=== PATIENT | female | born 1960 | race Caucasian/White ===

== ENCOUNTER 2017-05-01 12:18 | Emergency (ER) | payer MEDICARE, OTHER ==
[2017-05-01 13:11] VITALS: BP 135/87
--- NOTE | 2017-05-01 14:07 | UC ---
Complaint Female HPI - HPI Summary HPI Summary: HISTORY OF INTERSTITIAL CYSTITIS. HAS BEEN SELF-CATHING. THIS WEEKEND BEGAN DEVELOPING WORSENING BLADDER PRESSURE AND DISCOMFORT. - History Of Current Complaint Chief Complaint: UCAbdominalPain Stated Complaint: UTI Time Seen by Provider: 05/01/17 13:12 Hx Obtained From: Patient Onset/Duration: Gradual Onset, Lasting Days, Still Present Timing: Lasting Days Severity Initially: Mild Severity Currently: Moderate Pain Intensity: 0 Pain Scale Used: Adult Non Verbal Aggravating Factor(s): Urination Alleviating Factor(s): Position - Risk Factors Ectopic Risk Factor: Negative Ovarian Torsion Risk Factor: Negative - Allergies/Home Medications Allergies/Adverse Reactions: Allergies Allergy/AdvReac Type Severity Reaction Status Date / Time Omeprazole Allergy Rash Verified 05/01/17 13:11 Penicillins Allergy HAPPENED Verified 05/01/17 13:11 A CHILD -UNSURE OF RXN Home Medications: Home Medications Cimetidine [Cimetidine] 1 tab PO TID 05/01/17 [History Confirmed 05/01/17] Cystex 1 tab PO BID 05/01/17 [History Confirmed 05/01/17] Tizanidine HCl [Tizanidine HCl] 1 tab PO DAILY 05/01/17 [History Confirmed 05/01] hydrOXYzine HCL TAB* [Atarax 10 MG TAB*] 3 tab PO DAILY 05/01/17 [History Confirmed 05/01/17] PMH/Surg Hx/FS Hx/Imm Hx Previously Healthy: Yes - Surgical History Surgical History: Yes Surgery Procedure, Year, and Place: 1985 & 1986,HYSTERECTOMY 1990, HERNIA REPAIR LATE ,LAPROSCOPIC SURGERY TO REMOVE ABDOMINAL LESIONS 2011. LASIK EYE SURGERY CORRECTIVE VISION 2005 - Family History Known Family History: Positive: Cardiac Disease - father, Hypertension - mother and father, Other - Cervical CA (mother), HLD - Social History Occupation: Employed Full-time Lives: With Family Alcohol Use: None Substance Use Type: None Smoking Status (MU): Former Smoker Review of Systems Constitutional: Negative Skin: Negative Eyes: Negative ENT: Negative Respiratory: Negative Cardiovascular: Negative Gastrointestinal: Negative Genitourinary: Dysuria, Frequency, Urgency Motor: Negative Neurovascular: Negative Musculoskeletal: Negative Neurological: Negative Psychological: Negative All Other Systems Reviewed And Are Negative: Yes Physical Exam Triage Information Reviewed: Yes Appearance: Well-Appearing, No Pain Distress, Well-Nourished Vital Signs: Initial Vital Signs Temp 97.6 F 05/01/17 13:05 Pulse 76 05/01/17 13:05 Resp 18 05/01/17 13:05 BP 135/87 05/01/17 13:05 Pulse Ox 100 05/01/17 13:05 Vital Signs Reviewed: Yes Eye Exam: Normal ENT Exam: Normal Dental Exam: Normal Neck exam: Normal Neck: Positive: Supple, Nontender Respiratory Exam: Normal Respiratory: Positive: Chest non-tender, Lungs clear, Normal breath sounds Cardiovascular Exam: Normal Cardiovascular: Positive: RRR, No Murmur, Pulses Normal Abdominal Exam: Normal Abdomen Description: Positive: Nontender, No Organomegaly. Negative: CVA Tenderness (R), CVA Tenderness (L) Musculoskeletal Exam: Normal Neurological Exam: Normal Psychological Exam: Normal Skin Exam: Normal Complaint Female Dx - Differential Dx/Diagnosis Differential Diagnosis/HQI/PQRI: Cervicitis, Urinary Tract Infection, Other - IC Provider Diagnoses: URINARY TRACT INFECTION Discharge - Discharge Plan Condition: Stable Disposition: HOME Prescriptions: Sulfamethox/Trimethoprim DS* [Bactrim DS 800/160 TAB*] 1 tab PO BID #10 tab Patient Education Materials: Urinary Tract Infection in Women (ED) Referrals: Alicia Child MD [Primary Care Provider] -
== END 2017-05-01 13:45 | disposition home or self-care (01) ==
LOC: UCEAST 12:18
DX: N39.0 Urinary tract infection, site not specified (principal); Z88.0 Allergy status to penicillin; Z87.891 Personal history of nicotine dependence
CPT/HCPCS: 81003; 87077; 87086; 87186; 99212; G0463

== ENCOUNTER 2017-07-15 13:00 | Emergency (ER) | payer MEDICARE, OTHER ==
[2017-07-15] MEDS ORDERED: Albuterol/Ipratropium NEB.SOL* Albuterol 2.5 MG/Ipratropium 0.5 MG 3 ML INH ONE (14:23)
--- NOTE | 2017-07-15 14:25 | UC ---
Respiratory Complaint HPI - HPI Summary HPI Summary: Harsh cough for 2 days slight relief with neb (but the med was old) - History of Current Complaint Chief Complaint: UCRespiratory Stated Complaint: COUGH SOB ASTHMA Time Seen by Provider: 07/15/17 14:22 Hx Obtained From: Patient ?: No Onset/Duration: Sudden Onset, Lasting Days - 2 Timing: Constant Severity Initially: Moderate Severity Currently: Moderate Pain Intensity: 5 Pain Scale Used: 0-10 Numeric Character: Cough: Nonproductive Aggravating Factors: Allergens Alleviating Factors: Nothing Associated Signs And Symptoms: Positive: URI, Nasal Congestion - Allergies/Home Medications Allergies/Adverse Reactions: Allergies Allergy/AdvReac Type Severity Reaction Status Date / Time Omeprazole Allergy Rash Verified 07/15/17 13:08 Penicillins Allergy HAPPENED Verified 07/15/17 13:08 A CHILD -UNSURE OF RXN PMH/Surg Hx/FS Hx/Imm Hx Previously Healthy: No Endocrine History: Dyslipidemia Psychological History: Bipolar Disorder - Surgical History Surgical History: Yes Surgery Procedure, Year, and Place: 1985 & 1986,HYSTERECTOMY 1990, HERNIA REPAIR LATE ,LAPROSCOPIC SURGERY TO REMOVE ABDOMINAL LESIONS 2011. LASIK EYE SURGERY CORRECTIVE VISION 2005 - Family History Known Family History: Positive: Cardiac Disease - father, Hypertension - mother and father, Other - Cervical CA (mother), HLD - Social History Occupation: Retired Lives: With Family Alcohol Use: None Substance Use Type: None Smoking Status (MU): Former Smoker Review of Systems Constitutional: Negative Skin: Negative Eyes: Negative ENT: Nasal Discharge Respiratory: Cough Cardiovascular: Negative Gastrointestinal: Negative Genitourinary: Negative Motor: Negative Neurovascular: Negative Musculoskeletal: Negative Neurological: Negative Psychological: Negative Is Patient Immunocompromised?: No All Other Systems Reviewed And Are Negative: Yes Physical Exam Triage Information Reviewed: Yes Appearance: Well-Appearing, No Pain Distress, Well-Nourished Vital Signs: Initial Vital Signs Temp 98.2 F 07/15/17 13:03 Pulse 80 07/15/17 13:03 Resp 24 07/15/17 13:03 BP 120/65 07/15/17 13:03 Pulse Ox 99 07/15/17 13:03 Vital Signs Reviewed: Yes Eye Exam: Normal Eyes: Positive: Conjunctiva Clear ENT Exam: Normal ENT: Positive: Normal ENT inspection, Hearing grossly normal, Nasal congestion. Negative: Trismus, Muffled voice, Hoarse voice Dental Exam: Normal Neck exam: Normal Neck: Positive: Supple, Nontender, No Lymphadenopathy Respiratory Exam: Normal Respiratory: Positive: Chest non-tender, Lungs clear, No respiratory distress, Decreased breath sounds, Other: - Bronchospastic cough Cardiovascular Exam: Normal Cardiovascular: Positive: RRR, No Murmur, Pulses Normal, Brisk Capillary Refill Musculoskeletal Exam: Normal Musculoskeletal: Positive: Strength Intact, ROM Intact, No Edema Neurological Exam: Normal Neurological: Positive: Alert, Muscle Tone Normal Psychological Exam: Normal Skin Exam: Normal UC Diagnostic Evaluation - Laboratory O2 Sat by Pulse Oximetry: 99 - EKG Cardiac Rate: NL Cardiac Rhythm: Sinus: Normal Ectopy: None ST Segment: Normal Re-Evaluation - Re-Evaluation First Eval Change: Improved - after neb Respiratory Course/Dx - Course Course Of Treatment: Robitussin and Codiene, albuterol, increase cough follow with pcp - Differential Dx/Diagnosis Provider Diagnoses: Bronchospasm Discharge - Discharge Plan Condition: Stable Disposition: HOME Prescriptions: Albuterol 2.5MG/3ML (0.083%)* [Ventolin 2.5 MG/3 ML NEB.PRIYANK*] 2.5 mg INH Q6H PRN #1 box PRN Reason: Cough guaiFENesin/CODIEN 100MG-10MG* [Robitussin AC 100Mg-10Mg*] 10 ml PO Q4H PRN # 120 ml MDD 40 PRN Reason: cough Patient Education Materials: Bronchospasm (ED) Referrals: Chioma Lo MD [Primary Care Provider] - 3 Days
[2017-07-15 15:20] VITALS: BP 132/72
== END 2017-07-15 15:08 | disposition home or self-care (01) ==
LOC: UCEAST 13:00
DX: J98.01 Acute bronchospasm (principal); Z88.8 Allergy status to other drugs, medicaments and biological substances; Z88.0 Allergy status to penicillin; Z87.891 Personal history of nicotine dependence; R06.02 Shortness of breath; E78.5 Hyperlipidemia, unspecified
CPT/HCPCS: 93005; 99212; A9270-GY; G0463

== ENCOUNTER 2017-07-29 12:21 | Emergency (ER) | payer MEDICARE, OTHER ==
[2017-07-29 12:53] VITALS: BP 107/67
--- NOTE | 2017-07-29 12:57 | UC ---
Complaint Female HPI - HPI Summary HPI Summary: Pt presents with burning with urination. She tells me that she has an extensive history of interstitial cystitis and catheterizes herself often. 3 days ago she noticed some tingling around her urethra when she was urinating, which has been intermittent since. She denies fever, chills, abdominal pain, N/V/D/C, hematuria , vaginal discharge, odor, or flank pain. - History Of Current Complaint Hx Obtained From: Patient ?: No Onset/Duration: Sudden Onset Timing: Intermittent Severity Initially: Mild Severity Currently: Mild Character: Burning <Juancho Fulton - Last Filed: 07/29/17 13:46> <Cristiane Schmitz - Last Filed: 07/29/17 14:16> - History Of Current Complaint Chief Complaint: UCGU Stated Complaint: URINARY ISSUE Time Seen by Provider: 07/29/17 12:43 - Allergies/Home Medications Allergies/Adverse Reactions: Allergies Allergy/AdvReac Type Severity Reaction Status Date / Time Omeprazole Allergy Rash Verified 07/29/17 12:49 Penicillins Allergy HAPPENED Verified 07/29/17 12:49 A CHILD -UNSURE OF RXN PMH/Surg Hx/FS Hx/Imm Hx Previously Healthy: Yes Endocrine History: Dyslipidemia Cardiovascular History: Cardiac Disease Psychological History: Bipolar Disorder - Surgical History Surgical History: Yes Surgery Procedure, Year, and Place: 1985 & 1986,HYSTERECTOMY 1990, HERNIA REPAIR LATE ,LAPROSCOPIC SURGERY TO REMOVE ABDOMINAL LESIONS 2011. LASIK EYE SURGERY CORRECTIVE VISION 2005 - Family History Known Family History: Positive: Cardiac Disease - father, Hypertension - mother and father, Other - Cervical CA (mother), HLD - Social History Alcohol Use: None Substance Use Type: None Smoking Status (MU): Former Smoker <Juancho Fulton - Last Filed: 07/29/17 13:46> Review of Systems Constitutional: Negative Skin: Negative Respiratory: Negative Cardiovascular: Negative Gastrointestinal: Negative Genitourinary: Dysuria Neurological: Negative Psychological: Negative All Other Systems Reviewed And Are Negative: Yes <Juancho Fulton - Last Filed: 07/29/17 13:46> Physical Exam Triage Information Reviewed: Yes Appearance: Well-Appearing, Well-Nourished Vital Signs: Initial Vital Signs Temp 98.2 F 07/29/17 12:49 Pulse 74 07/29/17 12:49 Resp 15 07/29/17 12:49 BP 107/67 07/29/17 12:49 Pulse Ox 100 07/29/17 12:49 Vital Signs Reviewed: Yes Neck: Positive: Supple, Nontender, No Lymphadenopathy Respiratory: Positive: Chest non-tender, Lungs clear, Normal breath sounds, No respiratory distress, No accessory muscle use Cardiovascular: Positive: RRR, No Murmur, Pulses Normal Abdomen Description: Positive: Nontender, No Organomegaly, Soft. Negative: CVA Tenderness (R), CVA Tenderness (L), Distended, Guarding Bowel Sounds: Positive: Present Neurological: Positive: Alert Psychological: Positive: Age Appropriate Behavior Skin: Negative: rashes <Juancho Fulton - Last Filed: 07/29/17 13:46> Vital Signs: Initial Vital Signs Temp 98.2 F 07/29/17 12:49 Pulse 74 07/29/17 12:49 Resp 15 07/29/17 12:49 BP 107/67 07/29/17 12:49 Pulse Ox 100 07/29/17 12:49 <Cristiane Schmitz - Last Filed: 07/29/17 14:16> Complaint Female Dx - Course Course Of Treatment: UA was WNL today. Likely her interstitial cystitis. Advised to try her at home remedies and f/u with her urologist. - Differential Dx/Diagnosis Differential Diagnosis/HQI/PQRI: Cervicitis, Renal Colic, Sexually Transmitted Disease, Urinary Tract Infection, Other - IC Provider Diagnoses: interstitial cystitis <Juancho Fulton - Last Filed: 07/29/17 13:46> Discharge <Juancho Fulton - Last Filed: 07/29/17 13:46> <Cristiane Schmitz - Last Filed: 07/29/17 14:16> - Discharge Plan Condition: Stable Disposition: HOME Patient Education Materials: Interstitial Cystitis (ED) Referrals: Chioma Lo MD [Primary Care Provider] - Additional Instructions: No sign of urinary infection today. Try your at home remedies for interstitial cystitis. If you develop a fever, SOB, chest pain, new or worsening symptoms - please call your PCP or go to the ED. Attestation Statement User Type: Provider - I was available for consult. This patient was seen by the DAR[facility]. The patient was not presented to, seen by, or examined by me. -Simone <Cristiane Schmitz - Last Filed: 07/29/17 14:16>
== END 2017-07-29 13:47 | disposition home or self-care (01) ==
LOC: UCEAST 12:21
DX: N30.10 Interstitial cystitis (chronic) without hematuria (principal)
CPT/HCPCS: 81003; 99211; G0463

== ENCOUNTER 2017-08-04 13:48 | Emergency (ER) | payer MEDICARE, OTHER ==
[2017-08-04 15:12] VITALS: BP 107/69
--- NOTE | 2017-08-04 15:56 | UC ---
Complaint Female HPI - HPI Summary HPI Summary: 56 y/o female presents to the urgent care c/o frequency, urgency and burning on urination about 1 week ago. She was here at the clinic last week and her UA was negative, She has Hx of interstitial cystitis. She took Azo about 2 days ago and symptoms improved. She wants to make sure she doesn't have a UTI. Pt denies lower back pain, flank pain, abdominal pain, N/V/D, fever. - History Of Current Complaint Chief Complaint: UCAbdominalPain Stated Complaint: UNRINATION PROBLEM Time Seen by Provider: 08/04/17 15:22 Hx Obtained From: Patient Hx Last Menstrual Period: menopausal ?: No Onset/Duration: Gradual Onset, Lasting Weeks - 1 week, Still Present Timing: Intermittent, Lasting Seconds Severity Initially: Mild Severity Currently: Moderate Pain Intensity: 2 Pain Scale Used: 0-10 Numeric Character: Burning Aggravating Factor(s): Urination Alleviating Factor(s): Meds Associated Signs And Symptoms: Positive: Negative. Negative: Fever, Back Pain, Vaginal Bleeding/Discharge - Risk Factors Ectopic Risk Factor: Negative - Allergies/Home Medications Allergies/Adverse Reactions: Allergies Allergy/AdvReac Type Severity Reaction Status Date / Time Omeprazole Allergy Rash Verified 08/04/17 15:12 Penicillins Allergy HAPPENED Verified 08/04/17 15:12 A CHILD -UNSURE OF RXN PMH/Surg Hx/FS Hx/Imm Hx Previously Healthy: Yes Endocrine History: Dyslipidemia Other GI/ History: Interstitial cystitis - Surgical History Surgical History: Yes Surgery Procedure, Year, and Place: 1985 & 1986,HYSTERECTOMY 1990, HERNIA REPAIR LATE ,LAPROSCOPIC SURGERY TO REMOVE ABDOMINAL LESIONS 2011. LASIK EYE SURGERY CORRECTIVE VISION 2005 - Family History Known Family History: Positive: Cardiac Disease - father, Hypertension - mother and father Family History: Cervical CA (mother), HLD - Social History Occupation: Employed Full-time Lives: With Family Alcohol Use: None Substance Use Type: None Smoking Status (MU): Former Smoker - Immunization History Most Recent Influenza Vaccination: 05/2017 Review of Systems Constitutional: Negative Skin: Negative Eyes: Negative ENT: Negative Respiratory: Negative Cardiovascular: Negative Gastrointestinal: Negative Genitourinary: Dysuria, Frequency, Urgency Motor: Negative Neurovascular: Negative Musculoskeletal: Negative Neurological: Negative Psychological: Negative Is Patient Immunocompromised?: No All Other Systems Reviewed And Are Negative: Yes Physical Exam Triage Information Reviewed: Yes Vital Signs: Initial Vital Signs Temp 98.7 F 08/04/17 15:07 Pulse 87 08/04/17 15:07 Resp 16 08/04/17 15:07 BP 107/69 08/04/17 15:07 Pulse Ox 100 08/04/17 15:07 - Additional Comments VITAL SIGNS: Reviewed. GENERAL: Patient is a well developed and nourished female who is sitting comfortable in the examining table. Patient is not in any acute respiratory distress. HEAD AND FACE: No signs of trauma. No ecchymosis, hematomas or skull depressions. No sinus tenderness. EYES: PERRLA, EOMI x 2, No injected conjunctiva, clear watery eyes, no nystagmus. No photophobia. EARS: Hearing grossly intact. Ear canals and tympanic membranes are within normal limits. MOUTH: pharynx with no erythema, no exudates,no palatal petechiae. no B/L tonsillar enlargement Uvula in midline. NECK: Supple, trachea is midline, no lymphadenopathy, no JVD, no carotid bruit, no c-spine tenderness, neck with full ROM. CHEST: Symmetric, no tenderness at palpation LUNGS: Clear to auscultation bilaterally. No wheezing or crackles. CVS: Regular rate and rhythm, S1 and S2 present, no murmurs or gallops appreciated. ABDOMEN: Soft, non-tender. No signs of distention. No rebound no guarding, and no masses palpated. Bowel sounds are normal. BACK:no scoliosis or lesions, non tender to palaption, No B/L CVA tenderness EXTREMITIES: FROM in all major joints, no edema, no cyanosis or clubbing. NEURO: Alert and oriented x 3. No acute neurological deficits. Speech is normal and follows commands. Complaint Female Dx - Course Course Of Treatment: 56 y/o female presents to the urgent care c/o frequency, urgency and burning on urination about 1 week ago. She was here at the clinic last week and her UA was negative, She has Hx of interstitial cystitis. She took Azo about 2 days ago and symptoms improved. She wants to make sure she doesn't have a UTI. Pt denies lower back pain, flank pain, abdominal pain, N/V/D , fever. Hx obtained. PE: WNL. UA and test ordered. UA results: Nitrates + and Blood trace. Pt Rx Macrobid 100mg PO x 5 days. Pyridium 100mg PO TID x 2 days to Tx as UTI. Advised to increase fluid intake. Urine sent for culture to r/o UTI, if any abnormality Pt will be notified for further treatment. Pt advised If symptoms do not improve to return to the urgent care or f/u with PCP. Pt understood and agreed. Left the clinic ambulating. - Differential Dx/Diagnosis Differential Diagnosis/HQI/PQRI: Cervicitis, Pelvic Inflammatory Disease, Renal Colic, Sexually Transmitted Disease, Ureteral Stone, Urinary Tract Infection Provider Diagnoses: 1- UTI. 2-Dysuria Discharge - Discharge Plan Condition: Stable Disposition: HOME Prescriptions: Nitrofurantoin Monohyd Macro [Macrobid] 100 mg PO BID #10 cap Phenazopyridine TAB* [Pyridium 100 mg TAB*] 100 mg PO TID #6 tab Patient Education Materials: Urinary Tract Infection in Women (ED) Referrals: Chioma Lo MD [Primary Care Provider] - 3 Days Additional Instructions: 1- Please take Macrobid 100mg PO x 5 days. Pyridium 100 mg PO TID x 2 days to alleviate urinary symptoms. Increase increase fluid intake. drink cranberry juice. 2-Urine sent for culture to r/o UTI , you will be notified for further treatment. 3-If symptoms do not improve please return to the urgent care or f/u with her PCP.
--- NOTE | 2017-08-07 15:01 | UC ---
Progress - Progress Note Progress Note: + E coli pt on bactrim await sensitivity no change Simone 08/07/2017
== END 2017-08-04 15:50 | disposition home or self-care (01) ==
LOC: UCEAST 13:48
DX: N39.0 Urinary tract infection, site not specified (principal); R30.0 Dysuria; B96.20 Unspecified Escherichia coli [E. coli] as the cause of diseases classified elsewhere; Z87.891 Personal history of nicotine dependence
CPT/HCPCS: 81003; 87077; 87086; 87186; 99212; G0463

== ENCOUNTER 2017-08-14 07:36 | Emergency (ER) | payer MEDICARE, OTHER ==
[2017-08-14 07:51] VITALS: BP 105/60
--- NOTE | 2017-08-14 08:05 | UC ---
Complaint Female HPI - HPI Summary HPI Summary: PT WITH H/O INTERSTITIAL CYSTITIS AND URINARY RETENTION PRESENTS WITH 2-3 DAYS OF DYSURIA, FREQUENCY AND URGENCY. PT HAS BEEN SELF CATHING FOR A FEW MONTHS DUE TO URINARY RETENTION. SEES A UROGYNECOLOGIST IN [place] AND IS SCHEDULED FOR CYSTOSCOPY IN SEVERAL WEEKS. WAS ON MACROBID FOR E.COLI UTI 10 DAYS AGO. NO FEVER. - History Of Current Complaint Chief Complaint: UCGU Stated Complaint: URINARY ISSUE Time Seen by Provider: 08/14/17 07:58 Hx Obtained From: Patient Hx Last Menstrual Period: menopausal Onset/Duration: Sudden Onset, Lasting Days, Still Present Timing: Constant Severity Initially: Moderate Severity Currently: Moderate Pain Intensity: 4 Pain Scale Used: 0-10 Numeric Character: Sharp, Burning Aggravating Factor(s): Urination Alleviating Factor(s): Nothing Associated Signs And Symptoms: Negative: Fever, Back Pain, Vaginal Bleeding/ Discharge, Vaginal Discharge, Nausea, Vomiting(# Of Episodes =) - Allergies/Home Medications Allergies/Adverse Reactions: Allergies Allergy/AdvReac Type Severity Reaction Status Date / Time Omeprazole Allergy Rash Verified 08/14/17 07:51 Penicillins Allergy HAPPENED Verified 08/14/17 07:51 A CHILD -UNSURE OF RXN Home Medications: Home Medications Cystex 1 tab PO TID 08/14/17 [History Confirmed 08/14/17] Lamotrigine [Lamictal] 100 mg PO BEDTIME 08/14/17 [History Confirmed 08/14/17] PMH/Surg Hx/FS Hx/Imm Hx Endocrine History: Dyslipidemia GI/ History: Gastroesophageal Reflux Other GI/ History: IBS, INTERSTITIAL CYSTITIS, URINARY RETENTION Psychological History: Bipolar Disorder - Surgical History Surgical History: Yes Surgery Procedure, Year, and Place: 1985 & 1986,HYSTERECTOMY 1990, HERNIA REPAIR LATE ,LAPROSCOPIC SURGERY TO REMOVE ABDOMINAL LESIONS 2011. LASIK EYE SURGERY CORRECTIVE VISION 2005 - Family History Known Family History: Positive: Cardiac Disease - father, Hypertension - mother and father, Other - Cervical CA (mother), HLD Family History: Cervical CA (mother), HLD - Social History Alcohol Use: None Substance Use Type: None Smoking Status (MU): Former Smoker - Immunization History Most Recent Influenza Vaccination: 05/2017 Review of Systems Constitutional: Negative Respiratory: Negative Cardiovascular: Negative Gastrointestinal: Abdominal Pain Genitourinary: Dysuria, Frequency, Urgency All Other Systems Reviewed And Are Negative: Yes Physical Exam Triage Information Reviewed: Yes Appearance: Well-Appearing, No Pain Distress, Well-Nourished Vital Signs: Initial Vital Signs Temp 98.0 F 08/14/17 07:38 Pulse 75 08/14/17 07:38 Resp 18 08/14/17 07:38 BP 105/60 08/14/17 07:38 Pulse Ox 97 08/14/17 07:38 Vital Signs Reviewed: Yes Eyes: Positive: Conjunctiva Clear ENT: Positive: Hearing grossly normal Neck: Positive: Supple Respiratory: Positive: No respiratory distress, No accessory muscle use Cardiovascular: Positive: Pulses Normal Abdomen Description: Positive: Soft, Other: - MILD SUPRAPUBIC TENDERNESS. Negative: CVA Tenderness (R), CVA Tenderness (L), Distended, Guarding Musculoskeletal: Positive: No Edema Neurological: Positive: Alert Psychological: Positive: Age Appropriate Behavior Skin: Negative: rashes Diagnostics - Laboratory Diagnostic Studies Completed/Ordered: URINE DIP SP GR. 1.005, TRACE BLOOD, 3+ LEUKS Complaint Female Dx - Differential Dx/Diagnosis Provider Diagnoses: UTI Discharge - Discharge Plan Condition: Stable Disposition: HOME Prescriptions: Sulfamethox/Trimethoprim DS* [Bactrim DS 800/160 TAB*] 1 tab PO BID #14 tab Patient Education Materials: Urinary Tract Infection in Women (ED) Referrals: Chioma Lo MD [Primary Care Provider] - If Needed Additional Instructions: URINE DIP INDICATIVE OF UTI TODAY. TAKE ANTIBIOTICS FOR FULL COURSE AND CALL YOUR UROGYNECOLOGIST IN [place] TODAY. STAY WELL HYDRATED.
== END 2017-08-14 08:39 | disposition home or self-care (01) ==
LOC: UCEAST 07:36
DX: N39.0 Urinary tract infection, site not specified (principal); F31.9 Bipolar disorder, unspecified; Z88.0 Allergy status to penicillin; Z88.8 Allergy status to other drugs, medicaments and biological substances
CPT/HCPCS: 81003; 87077; 87086; 87186; 99212; G0463

== ENCOUNTER 2017-08-18 07:58 | Emergency (ER) | payer MEDICARE, OTHER ==
[2017-08-18] MEDS ORDERED: Ketorolac INJ* 30 MG/ML 1 ML VIAL IV ONE (08:41)
[2017-08-18] MEDS ORDERED: ceFAZolin 1 GM VIAL(*) 1 GM in NS 0.9% 50 ML* 50 ML IVPB ONE (08:42)
[2017-08-18] MEDS ORDERED: ceFAZolin 1 GM VIAL(*) 1 GM in D5W 50 ML BAG* 50 ML IVPB ONE (09:00)
--- NOTE | 2017-08-18 09:17 | RAD ---
INDICATION: Right flank pain. Urinary tract infection COMPARISON: Gallbladder sonogram May 15, 2017; CT March 31, 2014 TECHNIQUE: Noncontrast axial source images were acquired from the level hemidiaphragms to the symphysis pubis as part of CT imaging for renal stone. Lung bases: There is minor gravity dependent atelectasis with trace fluid in both lung bases. Liver: The liver is normal in size. Noncontrast imaging shows no evidence of a hepatic mass or ductal dilatation. Gallbladder: There are no calcified gallstones. There is no evidence of wall thickening or pericholecystic fluid.. Spleen: The spleen is normal in size. The noncontrast CT appearance is normal. Pancreas: Noncontrast imaging shows no pancreatic mass or ductal dilitation. Adrenal glands: No masses are identified. Kidneys/Bladder: There is no convincing evidence of urolithiasis. There is a phlebolith in the right gonadal vein are multiple fluid was in the minor pelvis. There is no CT evidence of hydronephrosis. Noncontrast imaging shows no evidence of a renal mass. The bladder is unremarkable.. Adenopathy: There is no evidence of intraperitoneal or retroperitoneal adenopathy. Evaluation is limited without oral contrast. Fluid collections: There are no free or localized fluid collections. Vessels: The aorta and iliac vessels are normal in caliber. There are no significant atherosclerotic changes. The IVC appears normal Pelvic organs: There is hysterectomy. There is no adnexal mass GI tract: Evaluation of the bowel is limited without oral contrast. The stomach, small bowel, and lower GI tract appear grossly normal. There are no obstructive findings. The appendix is visualized and appears normal. Soft tissues: No soft tissue abnormalities of the extraperitoneal abdomen or pelvis are identified. Osseous structures: There are no acute osseous findings. IMPRESSION: NO ACUTE CT FINDINGS. NO CT EVIDENCE OF UROLITHIASIS. NORMAL APPENDIX.
[2017-08-18] MEDS: NS 0.9% 1000 ML* 2,000 ML IV ONE (09:27)
[2017-08-18 09:47] LABS: Hematocrit 32 % (35-47); Hemoglobin 10.3 g/dl (12.0-16.0); Mean Corpuscular HGB Conc 33 g/dl (31-36); Mean Corpuscular Hemoglobin 28 pg (27-31); Mean Corpuscular Volume 85 fL (80-97); Mean Platelet Volume 10 um3 (7.4-10.4); Red Blood Count 3.71 10^6/ul (4.0-5.4); Red Cell Distribution Width 18 % (10.5-15); White Blood Count 7.5 10^3/ul (3.5-10.8)
[2017-08-18 09:52] LABS: Add Diff/Slide Review? Slide Review Added; Comments Flag Yes
[2017-08-18 09:54] LABS: Urine Bilirubin Negative (Negative); Urine Glucose Negative (Negative); Urine Nitrite Negative (Negative)
[2017-08-18] MEDS ORDERED: Ondansetron INJ* 2 MG/ML VIAL IV ONE (09:54)
[2017-08-18] MEDS ORDERED: Ondansetron INJ* 2 MG/ML VIAL ONE (09:54)
[2017-08-18 10:01] LABS: Albumin 4.1 g/dL (3.2-5.2); C Reactive Protein 2.32 mg/L (< 5.00); Calcium 9.3 mg/dL (8.6-10.3); EGFR Non-African American 57.6 (>60); Globulin 2.4 g/dL (2-4); Potassium 4.2 mmol/L (3.5-5.0); Total Bilirubin 0.7 mg/dL (0.2-1.0); Total Protein 6.5 g/dL (6.4-8.9)
[2017-08-18] MEDS ORDERED: Phenazopyridine TAB* 100 MG PO ONE (10:36)
[2017-08-18] MEDS ORDERED: HYDROcodone/ACETAMIN 5-325 MG* 1 TAB PO ONE (10:37)
--- NOTE | 2017-08-18 10:51 | ED ---
Joleen Cummings Emily, scribed for Geoffrey Garcia MD on 08/18/17 at 0837 . GI/ HPI - HPI Summary HPI Summary: This patient is a 56 year old F presenting to [facility] accompanied by with a chief complaint of suprapubic abdominal pain that began two weeks ago. Pain worsened yesterday. The patient rates the pain 7/10 in severity. Symptoms aggravated by nothing. Symptoms alleviated by nothing. Patient reports nausea, lightheadedness, back pain (6/10 in severity) and UTI symptoms. At the end of July, pt began experiencing symptoms that felt like a UTI. Pt was diagnosed with a UTI and prescribed Bactrim on the 14 of August. Medications reviewed. - History of Current Complaint Chief Complaint: EDUrogenitalProblems Time Seen by Provider: 08/18/17 08:24 Stated Complaint: UTI Hx Obtained From: Patient Hx Last Menstrual Period: menopausal Onset/Duration: Started Weeks Ago, Worse Since - Two days ago Timing: Constant Severity: Moderate Current Severity: Moderate Pain Intensity: 7 Location of Pain: Suprapubic Associated Signs and Symptoms: Positive: Back Pain, Nausea, UTI Symptoms, Other : - Positive lightheadedness Aggravating Factor(s): Nothing Alleviating Factor(s): Nothing - Allergy/Home Medications Allergies/Adverse Reactions: Allergies Allergy/AdvReac Type Severity Reaction Status Date / Time Omeprazole Allergy Rash Verified 08/14/17 07:51 Penicillins Allergy HAPPENED Verified 08/14/17 07:51 A CHILD -UNSURE OF RXN PMH/Surg Hx/FS Hx/Imm Hx Previously Healthy: No Endocrine/Hematology History: Denies: Hx Diabetes, Hx Thyroid Disease Cardiovascular History: Denies: Hx Hypertension, Hx Pacemaker/ICD Respiratory History: Reports: Hx Asthma GI History: Reports: Other GI Disorders - Hx GERD, IBS, h pylori Denies: Hx Ulcer History: Denies: Hx Renal Disease Sensory History: Denies: Hx Hearing Aid Neurological History: Reports: Other Neuro Impairments/Disorders - Bipolar Psychiatric History: Reports: Hx Panic Disorder - UNDER CONTROL - Cancer History Hx Chemotherapy: No Hx Radiation Therapy: No - Surgical History Surgery Procedure, Year, and Place: 1985 & 1986,HYSTERECTOMY 1990, HERNIA REPAIR LATE ,LAPROSCOPIC SURGERY TO REMOVE ABDOMINAL LESIONS 2011. LASIK EYE SURGERY CORRECTIVE VISION 2005 Infectious Disease History: No Infectious Disease History: Denies: Hx Clostridium Difficile, Hx Hepatitis, Hx Human Immunodeficiency Virus (HIV), Hx of Known/Suspected MRSA, Hx Shingles, Hx Tuberculosis, Hx Known/ Suspected VRE, Hx Known/Suspected VRSA, History Other Infectious Disease, Traveled Outside the [place] in Last 30 Days - Family History Known Family History: Positive: Cardiac Disease - father, Hypertension - mother and father, Other - Cervical CA (mother), HLD Family History: Cervical CA (mother), HLD - Social History Occupation: Unemployed Lives: With Family Alcohol Use: None Substance Use Type: Reports: None Hx Tobacco Use: No Smoking Status (MU): Former Smoker Review of Systems Positive: Abdominal Pain - Suprapubic, Nausea Positive: other - Positive UTI symptoms Positive: Other - Positive back pain Neurological: Other - Positive lightheadedness All Other Systems Reviewed And Are Negative: Yes Physical Exam Triage Information Reviewed: Yes Vital Signs On Initial Exam: Initial Vitals Temp Pulse Resp BP Pulse Ox 98.5 F 74 16 101/60 94 08/18/17 07:59 08/18/17 07:59 08/18/17 07:59 08/18/17 07:59 08/18/17 07:59 Vital Signs Reviewed: Yes Appearance: Positive: Well-Appearing, No Pain Distress Skin: Positive: Warm, Skin Color Reflects Adequate Perfusion, Dry Head/Face: Positive: Normal Head/Face Inspection Eyes: Positive: EOMI, [place] ENT: Positive: Normal ENT inspection Neck: Positive: Supple, Nontender Respiratory/Lung Sounds: Positive: Clear to Auscultation, Breath Sounds Present Cardiovascular: Positive: RRR Abdomen Description: Positive: Other: - Mild suprapubic tenderness. No CVA tenderness Bowel Sounds: Positive: Present Musculoskeletal: Positive: Normal, Strength/ROM Intact Neurological: Positive: Normal, Sensory/Motor Intact, Alert, Oriented to Person Place, Time Psychiatric: Positive: Affect/Mood Appropriate Diagnostics - Vital Signs Vital Signs Temp Pulse Resp BP Pulse Ox 08/18/17 07:59 98.5 F 74 16 101/60 94 - Laboratory Lab Results: Lab Results 08/18/17 08/18/17 08/18/17 Range/Units 09:10 09:26 09:26 WBC (3.5-10.8) 10^3/ul RBC (4.0-5.4) 10^6/ul Hgb (12.0-16.0) g/dl Hct (35-47) % MCV (80-97) fL MCH (27-31) pg MCHC (31-36) g/dl RDW (10.5-15) % Plt Count (150-450) 10^3/ul MPV (7.4-10.4) um3 Neut % (Auto) (38-83) % Lymph % (Auto) (25-47) % [place] % (Auto) (1-9) % Eos % (Auto) (0-6) % Baso % (Auto) (0-2) % Absolute Neuts (auto) (1.5-7.7) 10^3/ul Absolute Lymphs (auto) (1.0-4.8) 10^3/ul Absolute Monos (auto) (0-0.8) 10^3/ul Absolute Eos (auto) (0-0.6) 10^3/ul Absolute Basos (auto) (0-0.2) 10^3/ul Absolute Nucleated RBC 10^3/ul Nucleated RBC % INR (Anticoag Therapy) 1.07 H (0.77-1.02) APTT 33.6 (26.0-36.3) seconds Sodium 137 (133-145) mmol/L Potassium 4.2 (3.5-5.0) mmol/L Chloride 106 (101-111) mmol/L Carbon Dioxide 23 (22-32) mmol/L Anion Gap 8 (2-11) mmol/L BUN 20 (6-24) mg/dL Creatinine 1.00 H (0.51-0.95) mg/dL Est GFR ( Amer) 74.0 (>60) Est GFR (Non-Af Amer) 57.6 (>60) BUN/Creatinine Ratio 20.0 (8-20) Glucose 94 (70-100) mg/dL Lactic Acid (0.5-2.0) mmol/L Calcium 9.3 (8.6-10.3) mg/dL Total Bilirubin 0.70 (0.2-1.0) mg/dL AST 23 (13-39) U/L ALT 27 (7-52) U/L Alkaline Phosphatase 87 (34-104) U/L C-Reactive Protein 2.32 (< 5.00) mg/L Total Protein 6.5 (6.4-8.9) g/dL Albumin 4.1 (3.2-5.2) g/dL Globulin 2.4 (2-4) g/dL Albumin/Globulin Ratio 1.7 (1-3) Lipase 29 (11.0-82.0) U/L Urine Color Yellow Urine Appearance Clear Urine pH 7.0 (5-9) Ur Specific [place] 1.003 L (1.010-1.030) Urine Protein Negative (Negative) Urine Ketones Negative (Negative) Urine Blood Negative (Negative) Urine Nitrate Negative (Negative) Urine Bilirubin Negative (Negative) Urine Urobilinogen Negative (Negative) Ur Leukocyte Esterase Negative (Negative) Urine Glucose Negative (Negative) 08/18/17 08/18/17 Range/Units 09:26 09:26 WBC 7.5 (3.5-10.8) 10^3/ul RBC 3.71 L (4.0-5.4) 10^6/ul Hgb 10.3 L (12.0-16.0) g/dl Hct 32 L (35-47) % MCV 85 (80-97) fL MCH 28 (27-31) pg MCHC 33 (31-36) g/dl RDW 18 H (10.5-15) % Plt Count 217 (150-450) 10^3/ul MPV 10 (7.4-10.4) um3 Neut % (Auto) 59.3 (38-83) % Lymph % (Auto) 28.2 (25-47) % [place] % (Auto) 8.8 (1-9) % Eos % (Auto) 2.8 (0-6) % Baso % (Auto) 0.9 (0-2) % Absolute Neuts (auto) 4.4 (1.5-7.7) 10^3/ul Absolute Lymphs (auto) 2.1 (1.0-4.8) 10^3/ul Absolute Monos (auto) 0.7 (0-0.8) 10^3/ul Absolute Eos (auto) 0.2 (0-0.6) 10^3/ul Absolute Basos (auto) 0.1 (0-0.2) 10^3/ul Absolute Nucleated RBC 0.01 10^3/ul Nucleated RBC % 0.1 INR (Anticoag Therapy) (0.77-1.02) APTT (26.0-36.3) seconds Sodium (133-145) mmol/L Potassium (3.5-5.0) mmol/L Chloride (101-111) mmol/L Carbon Dioxide (22-32) mmol/L Anion Gap (2-11) mmol/L BUN (6-24) mg/dL Creatinine (0.51-0.95) mg/dL Est GFR ( Amer) (>60) Est GFR (Non-Af Amer) (>60) BUN/Creatinine Ratio (8-20) Glucose (70-100) mg/dL Lactic Acid 1.0 (0.5-2.0) mmol/L Calcium (8.6-10.3) mg/dL Total Bilirubin (0.2-1.0) mg/dL AST (13-39) U/L ALT (7-52) U/L Alkaline Phosphatase (34-104) U/L C-Reactive Protein (< 5.00) mg/L Total Protein (6.4-8.9) g/dL Albumin (3.2-5.2) g/dL Globulin (2-4) g/dL Albumin/Globulin Ratio (1-3) Lipase (11.0-82.0) U/L Urine Color Urine Appearance Urine pH (5-9) Ur Specific [place] (1.010-1.030) Urine Protein (Negative) Urine Ketones (Negative) Urine Blood (Negative) Urine Nitrate (Negative) Urine Bilirubin (Negative) Urine Urobilinogen (Negative) Ur Leukocyte Esterase (Negative) Urine Glucose (Negative) Result Diagrams: 08/18/17 09:26 08/18/17 09:26 Lab Statement: Any lab studies that have been ordered have been reviewed, and results considered in the medical decision making process. - CT Abdomen/Pelvis CT Interpretation Completed By: Radiologist - CT abdomen/pelvis reveals, per radiologist, no acute findings. No CT evidence of urolithiasis. Normal appendix. Dr. Garcia has reviewed this radiology report. Re-Evaluation - Re-Evaluation First Eval Re-Evaluation Time: 10:28 Change: Improved Comment: Discussed plan of care with pt. GIGU Course/Dx - Course Course Of Treatment: Discussed results with patient. UA NL so, no need for further ABx. I did Rx bactrim for the patient to take if needed prior to her [facility] scheduled visit on 08/24/17. She will continue the pyridium. Rx norco to use prn. One dose of Ancef in ED. Hx PCN allergy. No sign of allergic reaction in ED. F/U PMD and [facility]; return if worse. - Diagnoses Provider Diagnoses: Dysuria, Abdominal pain, Flank pain Discharge - Discharge Plan Condition: Stable Disposition: HOME Prescriptions: HYDROcodone/ACETAMIN 5-325 MG* [[place] 5-325 TAB*] 1 tab PO Q4H PRN #20 tab MDD 6 PRN Reason: Pain Sulfamethox/Trimethoprim DS* [Bactrim DS 800/160 TAB*] 1 tab PO BID #14 tab Patient Education Materials: Dysuria (ED), Abdominal Pain (ED), Flank Pain (ED) Referrals: Chioma Lo MD [Primary Care Provider] - Additional Instructions: FOLLOW UP WITH YOUR DOCTOR. RETURN TO THE EMERGENCY DEPARTMENT FOR ANY WORSENING OF YOUR CONDITION; PAIN, FEVER, YOU FEEL ILL OR QUESTIONS OR CONCERNS. YOU WERE GIVEN A DOSE OF THE ANTIBIOTIC ANCEF (CEFAZOLIN). IF YOU HAVE ANY SIGNS OF ALLERGIC REACTION, GET SEEN AGAIN RIGHT AWAY. The documentation as recorded by the Joleen aguirre Emily accurately reflects the service I personally performed and the decisions made by me, Geoffrey Garcia MD.
[2017-08-18 11:19] VITALS: BP 105/67
== END 2017-08-18 11:18 | disposition home or self-care (01) ==
LOC: ED 07:58
DX: R30.0 Dysuria (principal); R10.84 Generalized abdominal pain; Z87.891 Personal history of nicotine dependence; M54.9 Dorsalgia, unspecified; R11.0 Nausea; R42 Dizziness and giddiness
CPT/HCPCS: 36415; 74176; 80053; 81003; 83605; 83690; 85025; 85610; 85730; 86140; 87040; 96374; 99283; A9270-GY; J0690; J1885; J2405

== ENCOUNTER 2017-10-15 07:05 | Emergency (ER) | payer MEDICARE, OTHER ==
[2017-10-15 07:22] VITALS: BP 105/71
--- NOTE | 2017-10-15 07:39 | UC ---
Complaint Female HPI - HPI Summary HPI Summary: 57 yo female with a three day hx of dysuria/urgency/frequency no f/c no n/v some mild back and suprapubic abd pain - History Of Current Complaint Chief Complaint: UCGU Stated Complaint: URINARY ISSUE Time Seen by Provider: 10/15/17 07:29 Hx Obtained From: Patient Hx Last Menstrual Period: na Onset/Duration: Gradual Onset, Lasting Days Timing: Intermittent Severity Initially: Moderate Severity Currently: None Pain Intensity: 0 Pain Scale Used: 0-10 Numeric Character: Burning - with urination (terminal) Aggravating Factor(s): Urination Associated Signs And Symptoms: Positive: Back Pain - slight LBP - Allergies/Home Medications Allergies/Adverse Reactions: Allergies Allergy/AdvReac Type Severity Reaction Status Date / Time MS Omeprazole [Omeprazole] Allergy Rash Verified 10/15/17 07:22 MS Penicillins [Penicillins] Allergy HAPPENED Verified 10/15/17 07:22 A CHILD -UNSURE OF RXN Home Medications: Home Medications Fluticasone-Salmeterol 100-50* [Advair Diskus 100-50*] 1 puff INH BID 10/15/17 [ History Confirmed 10/15/17] PMH/Surg Hx/FS Hx/Imm Hx Previously Healthy: Yes Respiratory History: Asthma GI/ History: Ulcer Psychological History: Bipolar Disorder - Surgical History Surgical History: Yes Surgery Procedure, Year, and Place: 1985 & 1986,HYSTERECTOMY 1990, HERNIA REPAIR LATE ,LAPROSCOPIC SURGERY TO REMOVE ABDOMINAL LESIONS 2011. LASIK EYE SURGERY CORRECTIVE VISION 2005 - Family History Known Family History: Positive: Cardiac Disease - father, Hypertension - mother and father, Other - Cervical CA (mother), HLD Family History: Cervical CA (mother), HLD - Social History Alcohol Use: None Substance Use Type: None Smoking Status (MU): Former Smoker Household Exposure Type: Cigarettes - Immunization History Most Recent Influenza Vaccination: 05/2017 Review of Systems Constitutional: Negative Skin: Negative Eyes: Negative ENT: Negative Respiratory: Negative Cardiovascular: Negative Gastrointestinal: Abdominal Pain - suprpubic Genitourinary: Dysuria, Frequency, Urgency Motor: Negative Neurovascular: Negative Musculoskeletal: Negative Neurological: Negative Psychological: Negative Is Patient Immunocompromised?: No All Other Systems Reviewed And Are Negative: Yes Physical Exam Triage Information Reviewed: Yes Appearance: Well-Appearing, No Pain Distress Vital Signs: Initial Vital Signs Temp 97.7 F 10/15/17 07:17 Pulse 71 10/15/17 07:17 Resp 18 10/15/17 07:17 BP 105/71 10/15/17 07:17 Pulse Ox 98 10/15/17 07:17 Vital Signs Reviewed: Yes Eyes: Positive: Conjunctiva Clear ENT: Positive: Hearing grossly normal, Uvula midline. Negative: Nasal congestion, Nasal drainage, Dental tenderness, Sinus tenderness Neck: Positive: Supple, Nontender, No Lymphadenopathy Respiratory: Positive: Lungs clear, Normal breath sounds, No respiratory distress Cardiovascular: Positive: RRR, No Murmur Abdomen Description: Positive: Nontender, No Organomegaly, Soft. Negative: CVA Tenderness (R), CVA Tenderness (L) Bowel Sounds: Positive: Present Musculoskeletal: Positive: ROM Intact, No Edema Neurological: Positive: Alert Psychological Exam: Normal Skin Exam: Normal Complaint Female Dx - Course Course Of Treatment: UA (-). pt states she will see her specialist tomorrow re complaints - Differential Dx/Diagnosis Provider Diagnoses: dusuria of uncertain cause Discharge - Discharge Plan Condition: Stable Disposition: HOME Patient Education Materials: Dysuria (ED) Referrals: Chioma Lo MD [Primary Care Provider] - Additional Instructions: see your provider tomorrow as planned your urine looked clear a culture is pending use your pyridium as directed
== END 2017-10-15 07:52 | disposition home or self-care (01) ==
LOC: UCEAST 07:05
DX: R30.0 Dysuria (principal); R10.30 Lower abdominal pain, unspecified; M54.5 Low back pain; J45.909 Unspecified asthma, uncomplicated; F31.9 Bipolar disorder, unspecified; Z90.710 Acquired absence of both cervix and uterus; Z88.0 Allergy status to penicillin; Z88.8 Allergy status to other drugs, medicaments and biological substances; Z87.891 Personal history of nicotine dependence
CPT/HCPCS: 81003; 87086; 99211; G0463

== ENCOUNTER 2017-11-19 13:07 | Emergency (ER) | payer MEDICARE, OTHER | END 2017-11-19 14:08 | disposition left against medical advice (07) | LOC: UCEAST 13:07 | DX: R09.89 Other specified symptoms and signs involving the circulatory and respiratory systems (principal); Z53.21 Procedure and treatment not carried out due to patient leaving prior to being seen by health care provider ==

== ENCOUNTER 2017-12-09 10:41 | Emergency (ER) | payer MEDICARE, OTHER ==
[2017-12-09 11:09] VITALS: BP 104/64
--- NOTE | 2017-12-09 11:55 | UC ---
Complaint Female HPI - HPI Summary HPI Summary: c/o persistent urinary frequency and burning for the past 2 weeks, finished course of doxycycline without any significant improvement. She denies flank pain , fever or history of urolithiasis. SHe states she has been taking cystex, and has history of interstitial cystitis for which she takes ranitidine and hydroxyzine. She also has history of bipolar disorder and orthostatic hypotension for which she has been treated. - History Of Current Complaint Chief Complaint: UCGU Stated Complaint: FREQUENT AND BURNING URINATION Time Seen by Provider: 12/09/17 11:42 Hx Obtained From: Patient Hx Last Menstrual Period: na ?: No Onset/Duration: Sudden Onset, Gradual Onset, Lasting Weeks Timing: Constant Severity Initially: Moderate Severity Currently: Mild Pain Intensity: 2 Character: Burning Aggravating Factor(s): Urination Alleviating Factor(s): Nothing Associated Signs And Symptoms: Positive: Negative - Risk Factors Ectopic Risk Factor: Negative - Allergies/Home Medications Allergies/Adverse Reactions: Allergies Allergy/AdvReac Type Severity Reaction Status Date / Time omeprazole Allergy Rash Verified 12/09/17 11:10 Penicillins Allergy See Comment Verified 12/09/17 11:10 Home Medications: Home Medications risperiDONE [Risperdal M-Tab-] 4 mg PO BEDTIME 12/09/17 [History Confirmed 12/09] PMH/Surg Hx/FS Hx/Imm Hx Previously Healthy: Yes Endocrine History: Dyslipidemia Other Cardiovascular History: orthostatic hypotension Other GI/ History: interstitial cystitis Psychological History: Bipolar Disorder - Surgical History Surgical History: Yes Surgery Procedure, Year, and Place: 1985 & 1986,HYSTERECTOMY 1990, HERNIA REPAIR LATE ,LAPROSCOPIC SURGERY TO REMOVE ABDOMINAL LESIONS 2011. LASIK EYE SURGERY CORRECTIVE VISION 2005 - Family History Known Family History: Positive: Cardiac Disease - father, Hypertension - mother and father, Other - Cervical CA (mother), HLD Family History: Cervical CA (mother), HLD - Social History Alcohol Use: None Substance Use Type: None Smoking Status (MU): Former Smoker Household Exposure Type: Cigarettes - Immunization History Most Recent Influenza Vaccination: 05/2017 Review of Systems All Other Systems Reviewed And Are Negative: Yes Physical Exam Triage Information Reviewed: Yes Appearance: Well-Appearing, No Pain Distress, Well-Nourished Vital Signs: Initial Vital Signs Temp 96.8 F 12/09/17 11:05 Pulse 84 12/09/17 11:05 Resp 18 12/09/17 11:05 BP 104/64 12/09/17 11:05 Pulse Ox 97 12/09/17 11:05 Vital Signs Reviewed: Yes Eyes: Positive: Conjunctiva Clear ENT: Positive: Hearing grossly normal, Pharynx normal Neck: Positive: Supple, Nontender Respiratory: Positive: Chest non-tender, Lungs clear, Normal breath sounds Cardiovascular: Positive: RRR, No Murmur, Pulses Normal, Brisk Capillary Refill Abdomen Description: Positive: Nontender, No Organomegaly, Soft - no CVA tenderness Complaint Female Dx - Course Course Of Treatment: continue oral hydration and cystex. Start macrobid as prescribed and f/u PCP - Differential Dx/Diagnosis Provider Diagnoses: UTI Discharge - Sign-Out/Discharge Documenting (check all that apply): Discharge - Discharge Plan Condition: Stable Disposition: HOME Prescriptions: Nitrofurantoin Macrocrystals* [Macrodantin*] 100 mg PO BID 7 Days #14 cap Patient Education Materials: Urinary Tract Infection in Women (ED), Nitrofurantoin (By mouth) Referrals: Chioma Lo MD [Primary Care Provider] - - Billing Disposition and Condition Condition: STABLE Disposition: HOME
== END 2017-12-09 11:54 | disposition home or self-care (01) ==
LOC: UCEAST 10:41
DX: N39.0 Urinary tract infection, site not specified (principal); B96.89 Other specified bacterial agents as the cause of diseases classified elsewhere; E78.5 Hyperlipidemia, unspecified; I10 Essential (primary) hypertension; F31.9 Bipolar disorder, unspecified; Z88.0 Allergy status to penicillin; Z88.8 Allergy status to other drugs, medicaments and biological substances; Z87.891 Personal history of nicotine dependence
CPT/HCPCS: 81003; 87077; 87086; 87186; 99212; G0463

== ENCOUNTER 2017-12-30 08:43 | Emergency (ER) | payer MEDICARE, OTHER ==
[2017-12-30 08:52] VITALS: BP 110/72
--- NOTE | 2017-12-30 09:26 | UC ---
Complaint Female HPI - HPI Summary HPI Summary: patient has had UTI symptoms over past month. has been treated twice, once with macrodantin and once with Bactrim. she feel sthat the symptoms have never gotten better. today she reprots burning urination, frequency and lower abd cramps at times - History Of Current Complaint Chief Complaint: UCGU Stated Complaint: BURNING URINATION Time Seen by Provider: 12/30/17 09:11 Hx Obtained From: Patient Hx Last Menstrual Period: na ?: No Onset/Duration: Gradual Onset Timing: Constant Severity Initially: Mild Severity Currently: Moderate Pain Intensity: 3 Character: Dull, Burning Aggravating Factor(s): Urination Alleviating Factor(s): Nothing Associated Signs And Symptoms: Negative: Fever, Back Pain, Vaginal Bleeding/ Discharge, Nausea - Allergies/Home Medications Allergies/Adverse Reactions: Allergies Allergy/AdvReac Type Severity Reaction Status Date / Time omeprazole Allergy Rash Verified 12/09/17 11:10 Penicillins Allergy See Comment Verified 12/09/17 11:10 Home Medications: Home Medications Albuterol HFA INHALER* [Ventolin HFA Inhaler*] 2 puff INH Q4H PRN 12/30/17 [ History Confirmed 12/30/17] Atorvastatin* [Lipitor 20 MG*] 20 mg PO 1700 12/30/17 [History Confirmed ] Docusate CAP* [Colace Cap*] 100 mg PO DAILY 12/30/17 [History Confirmed 12/30/17 ] Lidocaine 5% OINT* [Xylocaine 5% Oint*] 1 applic TOPICAL QID PRN 12/30/17 [ History Confirmed 12/30/17] PMH/Surg Hx/FS Hx/Imm Hx Previously Healthy: Yes Respiratory History: Asthma GI/ History: Other - interstitial cystitis Other GI/ History: cystitis Psychological History: Anxiety, Depression - Surgical History Surgical History: Yes Surgery Procedure, Year, and Place: 1985 & 1986,HYSTERECTOMY 1990, HERNIA REPAIR LATE ,LAPROSCOPIC SURGERY TO REMOVE ABDOMINAL LESIONS 2011. LASIK EYE SURGERY CORRECTIVE VISION 2005 - Family History Known Family History: Positive: Cardiac Disease - father, Hypertension - mother and father, Other - Cervical CA (mother), HLD Family History: Cervical CA (mother), HLD - Social History Occupation: Employed Full-time Lives: With Family Alcohol Use: None Substance Use Type: None Smoking Status (MU): Former Smoker Household Exposure Type: Cigarettes - Immunization History Most Recent Influenza Vaccination: 05/2017 Review of Systems Constitutional: Negative Respiratory: Negative Cardiovascular: Negative Gastrointestinal: Negative Genitourinary: Dysuria, Frequency, Urgency Neurological: Negative Psychological: Negative All Other Systems Reviewed And Are Negative: Yes Physical Exam Triage Information Reviewed: Yes Appearance: Well-Appearing, No Pain Distress, Well-Nourished Vital Signs: Initial Vital Signs Temp 98 F 12/30/17 08:49 Pulse 98 12/30/17 08:49 Resp 15 12/30/17 08:49 BP 110/72 12/30/17 08:49 Pulse Ox 99 12/30/17 08:49 Vital Signs Reviewed: Yes Respiratory Exam: Normal Cardiovascular Exam: Normal Abdominal Exam: Normal Abdomen Description: Positive: Nontender, No Organomegaly, Soft Bowel Sounds: Positive: Present Neurological Exam: Normal Neurological: Positive: Alert Psychological Exam: Normal Skin Exam: Normal Complaint Female Dx - Differential Dx/Diagnosis Differential Diagnosis/HQI/PQRI: Ureteral Stone, Urinary Tract Infection, Other - interstitial cystitis Provider Diagnoses: UTI Discharge - Sign-Out/Discharge Documenting (check all that apply): Discharge/Admit/Transfer - Discharge Plan Condition: Good Disposition: HOME Prescriptions: Levofloxacin TAB* [Levaquin TAB*] 500 mg PO DAILY #10 tab Patient Education Materials: Urinary Tract Infection in Women (ED) Referrals: Chioma Lo MD [Primary Care Provider] - Additional Instructions: drink plenty of fluids report fever, chills or worsening symptoms should they occur take antibiotic as prescribed - Billing Disposition and Condition Condition: GOOD Disposition: HOME
== END 2017-12-30 09:52 | disposition home or self-care (01) ==
LOC: UCEAST 08:43
DX: N39.0 Urinary tract infection, site not specified (principal); B96.89 Other specified bacterial agents as the cause of diseases classified elsewhere; J45.909 Unspecified asthma, uncomplicated; Z88.8 Allergy status to other drugs, medicaments and biological substances; F41.9 Anxiety disorder, unspecified; F32.9 Major depressive disorder, single episode, unspecified; Z88.0 Allergy status to penicillin; Z87.891 Personal history of nicotine dependence
CPT/HCPCS: 81003; 87077; 87086; 87186; 99212; G0463

== ENCOUNTER 2018-02-04 06:58 | Emergency (ER) | payer MEDICARE, OTHER ==
[2018-02-04 07:21] VITALS: BP 113/71
--- NOTE | 2018-02-04 08:00 | UC ---
Kinza Cummings Gabriel, [facility] on 02/04/18 at 0725 . Complaint Female HPI - HPI Summary HPI Summary: This patient is a 57 year old F presenting [place] [facility] chief complaint of dysuria that began on yesterday. The patient rates the pain 1/10 in severity. Patient reports bladder pain, increased frequency, back pain, and general myalgia (due to rain). Patient denies fever, n/v/d, and sore throat. Pt denies other complaints at this time. Hx fibromyalgia and interstitial cystitis, pt thought it was a flair and is on medication for it. She attempted a bladder instillation but it did not alleviate symptoms. She reports symptoms are similar to visits in December. note: vital signs stable, afebrile, 3/10 dysuria, visit history: c section, hysterectomy, multiple UTI visits including 2 in December. Nurse note: Pt states burning urination, pain after urination, increased urination, and spasm feeling while urinating that began 02/03/18. Pt pain in bladder area. Pt states history of Intersitial Cystitis. - History Of Current Complaint Chief Complaint: UCGU Stated Complaint: URINARY COMPLAINT Time Seen by Provider: 02/04/18 07:08 Hx Obtained From: Patient Hx Last Menstrual Period: na Onset/Duration: Lasting Days - 1, Still Present Timing: Constant Severity Initially: Mild Severity Currently: Mild Pain Intensity: 1 Pain Scale Used: 0-10 Numeric Character: Burning Associated Signs And Symptoms: Negative: Fever - Allergies/Home Medications Allergies/Adverse Reactions: Allergies Allergy/AdvReac Type Severity Reaction Status Date / Time omeprazole Allergy Rash Verified 02/04/18 07:07 Penicillins Allergy See Comment Verified 02/04/18 07:07 Home Medications: Home Medications Estradiol VAG CM (NF) [Estrace VAG CM (NF)] 1 applic TOPICAL SEE INSTRUCTIONS [History Confirmed 02/04/18] LORazepam [Ativan 0.5 MG TAB] 0.5 mg PO BEDTIME 02/04/18 [History Confirmed 12/19] Lidocaine 5% OINT* [Xylocaine 5% Oint*] 1 applic TOPICAL DAILY PRN 02/04/18 [ History Confirmed 02/04/18] PMH/Surg Hx/FS Hx/Imm Hx - Additional Past Medical History Additional PMH: interstitial cystitis; Fibromyalgia; GERD; Insomnia; Monoclonal Gammopathy; Orthostatic Hypotension; Osteopenia; Gastroparesis; PTSD, ulcer, Respiratory History: Asthma Psychological History: Bipolar Disorder - Surgical History Surgical History: Yes Surgery Procedure, Year, and Place: 1985 & 1986,HYSTERECTOMY 1990, HERNIA REPAIR LATE ,LAPROSCOPIC SURGERY TO REMOVE ABDOMINAL LESIONS 2011. LASIK EYE SURGERY CORRECTIVE VISION 2005 - Family History Known Family History: Positive: Cardiac Disease - father, Hypertension - mother and father, Other - Cervical CA (mother), HLD Family History: Cervical CA (mother), HLD - Social History Occupation: Retired Alcohol Use: None Substance Use Type: None Smoking Status (MU): Former Smoker Household Exposure Type: Cigarettes - Immunization History Most Recent Influenza Vaccination: 05/2017 Review of Systems Genitourinary: Dysuria, Frequency, Other - bladder pain Musculoskeletal: Myalgia - due to rain, Other: - back pain All Other Systems Reviewed And Are Negative: Yes - Comments Additional Review of Systems Comments: Positive: dysuria, bladder pain, increased urinary frequency, back pain, and myalgia. Negative: fever, n/v/d, and sore throat. Physical Exam - Summary Physical Exam Summary: Appearance: The patient is well-appearing, is in no pain distress, and is well- nourished. Eyes: Conjunctiva are clear. ENT: The hearing is grossly normal, the pharynx is normal, and the TMs are normal. There is no muffled or hoarse voice. Neck: The neck is supple and there is no lymphadenopathy. Respiratory: The chest is nontender. The lungs are clear, there are normal breath sounds, and there is no respiratory distress. Cardiovascular: Heart is regular rate and rhythm. There is no murmur. Abdomen: The abdomen is soft and nontender. There is no organomegaly. Bowel sounds: present Musculoskeletal: Strength is intact. The patient moves all extremities. NEGATIVE CVA TENDERNESS. Neurological: The patient is alert. Psychological: The patient displays age appropriate behavior Skin: Negative for rashes. Triage Information Reviewed: Yes Vital Signs: Initial Vital Signs Temp 98.8 F 02/04/18 07:15 Pulse 83 02/04/18 07:15 Resp 16 02/04/18 07:15 BP 113/71 02/04/18 07:15 Pulse Ox 97 02/04/18 07:15 Vital Signs Reviewed: Yes Complaint Female Dx - Course Course Of Treatment: Pt with a long history of chronic intermittent UTI with a concurrent dx of interstitial cystitis. Pt states it feels like a UTI and her treatment for interstitial cystitis did not relieve symptoms we decided to try a course of cipro even though UA was negative. I instructed her not to take the atarax while she is on the cipro. - Differential Dx/Diagnosis Differential Diagnosis/HQI/PQRI: Other - interstitial cystitis vs cystitis Provider Diagnoses: UTI Discharge - Sign-Out/Discharge Documenting (check all that apply): Discharge/Admit/Transfer - Discharge Plan Condition: Stable Disposition: HOME Prescriptions: Ciprofloxacin TAB* [Cipro Tab*] 250 mg PO BID #10 tab MDD 2 Patient Education Materials: Urinary Tract Infection in Women (ED) Referrals: Nely Worthy MD [Primary Care Provider] - Additional Instructions: WE DISCUSSED: You may have interstitial cystitis, or urinary tract infection. Your urine analysis did not show an infection. Nonetheless, as we discussed, try Cipro for 5 days and see if it relieves her symptoms. This will add information about this kind of situation. Call with any questions or concerns. Please go to the emergency room for increased pain, temperature, or new symptoms. The documentation as recorded by the Kinza aguirre Gabriel accurately reflects the service I personally performed and the decisions made by me, Kain aPrks MD.
== END 2018-02-04 07:55 | disposition home or self-care (01) ==
LOC: UCEAST 06:58
DX: N39.0 Urinary tract infection, site not specified (principal); Z88.8 Allergy status to other drugs, medicaments and biological substances; Z88.0 Allergy status to penicillin; F31.9 Bipolar disorder, unspecified; Z87.891 Personal history of nicotine dependence
CPT/HCPCS: 81003; 99212; G0463

== ENCOUNTER 2018-03-03 07:00 | Emergency (ER) | payer MEDICARE, OTHER ==
[2018-03-03 07:10] VITALS: BP 124/68
--- NOTE | 2018-03-03 07:47 | UC ---
Skin Complaint HPI - HPI Summary HPI Summary: States she came back from [place] recently and had an excessive amount of mangos. She states she ate them and the juice/skin made contact with the skin around her mouth. SHe states she woke up yesterday morning with a rash around her mouth and in lesser degree on the rest of the face. She states it walker more than itches. She also states she started with a rash on her hands about 10 days ago which occasionally itch and cannot relate that to any contact or new food/medication. She started Vrylar several weeks ago. - History of Current Complaint Chief Complaint: UCSkin Time Seen by Provider: 03/03/18 07:19 Stated Complaint: ALLERGIC REACTION Hx Obtained From: Patient Hx Last Menstrual Period: na ?: No Onset/Duration: Sudden Onset, Lasting Days Skin Exposure Onset/Duration: Days Ago Timing: Constant Onset Severity: Mild Current Severity: Moderate Pain Intensity: 4 Location: Discrete, Face, Hand (Right), Hand (Left) Character: Pruritus, Painful Aggravating Factor(s): Nothing Alleviating Factor(s): Nothing Associated Signs & Symptoms: Positive: Negative Related History: Possible Reaction to: Food - Allergy/Home Medications Allergies/Adverse Reactions: Allergies Allergy/AdvReac Type Severity Reaction Status Date / Time omeprazole Allergy Rash Verified 03/03/18 07:10 Penicillins Allergy See Comment Verified 03/03/18 07:10 Home Medications: Home Medications Cariprazine HCl [Vraylar] 3 mg PO DAILY 03/03/18 [History Confirmed 03/03/18] Phenazopyridine TAB* [Pyridium 100 mg TAB*] 100 mg PO TID PRN 03/03/18 [History Confirmed 03/03/18] Review of Systems Constitutional: Negative All Other Systems Reviewed And Are Negative: Yes PMH/Surg Hx/FS Hx/Imm Hx Endocrine History: Dyslipidemia Respiratory History: Asthma Psychological History: Bipolar Disorder - Surgical History Surgical History: Yes Surgery Procedure, Year, and Place: 1985 & 1986,HYSTERECTOMY 1990, HERNIA REPAIR LATE ,LAPROSCOPIC SURGERY TO REMOVE ABDOMINAL LESIONS 2011. LASIK EYE SURGERY CORRECTIVE VISION 2005 - Family History Known Family History: Positive: Cardiac Disease - father, Hypertension - mother and father, Other - Cervical CA (mother), HLD Family History: Cervical CA (mother), HLD - Social History Alcohol Use: None Substance Use Type: None Smoking Status (MU): Former Smoker Household Exposure Type: Cigarettes - Immunization History Most Recent Influenza Vaccination: 05/2017 Physical Exam Triage Information Reviewed: Yes Appearance: Well-Appearing, No Pain Distress, Well-Nourished Vital Signs: Initial Vital Signs Temp 97.9 F 03/03/18 07:06 Pulse 77 03/03/18 07:06 Resp 16 03/03/18 07:06 BP 124/68 03/03/18 07:06 Pulse Ox 99 03/03/18 07:06 Vital Signs Reviewed: Yes ENT: Positive: Hearing grossly normal Neck: Positive: Supple Respiratory: Positive: Lungs clear Cardiovascular: Positive: RRR, No Murmur, Pulses Normal, Brisk Capillary Refill Abdomen Description: Positive: Nontender Bowel Sounds: Positive: Present Musculoskeletal: Positive: Strength Intact, ROM Intact, No Edema Skin Exam: Other - macular rash on dorsum of right hand near wrist, irregularly shaped with elevated borders approx 2x1.5inches in dimension. Macular rash on dorsum left hand mid metacarpal areas irregular raised borders approx [id number] in dimension. E[place]he[place] on forehead, nose and perioral rash extending to chin and genulabial creases. Course/Dx - Course Course Of Treatment: patient presents with rash on face and periorally, possible due to ingestion of mangos. Also has rash on both hands which has been for 10 days and etiology is uncertain. Start prednisone 40mg po daily and apply hydrocort cream 0.5% on face no more than twice a day for 7 days. F/u with PCP and dermatology - Diagnoses Provider Diagnoses: Urticaria. Rash on hands Discharge - Sign-Out/Discharge Documenting (check all that apply): Discharge/Admit/Transfer - Discharge Plan Condition: Good Disposition: HOME Prescriptions: Hydrocortisone 0.5% CM(NF) [Hydrocortisone 0.5% CREAM(NF)] 1 applic .SEE ORDER BID 5 Days #1 applic predniSONE TAB* [Deltasone 20 MG TAB*] 40 mg PO DAILY 3 Days #6 tab Patient Education Materials: Urticaria (ED), Corticosteroids (On the skin), Prednisone (By mouth) Referrals: Nely Worthy MD [Primary Care Provider] - Additional Instructions: follow up with dermatology and PCP - Billing Disposition and Condition Condition: GOOD Disposition: Home
== END 2018-03-03 07:45 | disposition home or self-care (01) ==
LOC: UCEAST 07:00
DX: L50.9 Urticaria, unspecified (principal); E78.5 Hyperlipidemia, unspecified; J45.909 Unspecified asthma, uncomplicated; F31.9 Bipolar disorder, unspecified; Z88.0 Allergy status to penicillin; Z88.8 Allergy status to other drugs, medicaments and biological substances
CPT/HCPCS: 99212; G0463

== ENCOUNTER 2018-07-06 16:49 | Emergency (ER) | payer MEDICARE, OTHER ==
[2018-07-06] MEDS ORDERED: NS 0.9% 1000 ML* 1,000 ML IV ONE (16:59)
--- NOTE | 2018-07-06 17:11 | ED ---
Syncope/Near Syncope - HPI Summary HPI Summary: This patient is a 57 year old F presenting to [facility] accompanied by with a chief complaint of near syncope that resolved [employer]. The patient rates the pain 4/10 in severity. Symptoms aggravated by nothing. Symptoms alleviated by nothing. Patient reports sharp pain under left breast, cough (began 2 months ago ), SOB (began prior to this episode), and dark stool. Patient denies blackening vision and fever. Patient states that while she was browsing in a department store, she became very tired and felt like she would faint. Patient states she has a history of anemia. - History Of Current Complaint Chief Complaint: EDSyncope Time Seen by Provider: 07/06/18 16:58 Hx Obtained From: Patient Onset/Duration: Sudden Onset, Lasting Minutes, Resolved Timing: Intermittent Episode Lasting - Minutes Context: Witnessed Associated Head Trauma: No Aggravating Factor(s): Nothing Alleviating Factor(s): Nothing Associated Signs And Symptoms: Other - Positive sharp pain under left breast, cough (began 2 months ago), SOB (began prior to this episode), and dark stool. Negative blackening vision and fever. - Allergies/Home Medications Allergies/Adverse Reactions: Allergies Allergy/AdvReac Type Severity Reaction Status Date / Time omeprazole Allergy Rash Verified 07/06/18 16:53 Penicillins Allergy See Comment Verified 07/06/18 16:53 PMH/Surg Hx/FS Hx/Imm Hx Previously Healthy: No Endocrine/Hematology History: Denies: Hx Diabetes, Hx Thyroid Disease Cardiovascular History: Denies: Hx Hypertension, Hx Pacemaker/ICD Respiratory History: Reports: Hx Asthma Denies: Hx Chronic Obstructive Pulmonary Disease (COPD) GI History: Reports: Hx Ulcer, Other GI Disorders - Hx GERD, IBS, h pylori History: Denies: Hx Renal Disease Sensory History: Denies: Hx Hearing Aid Neurological History: Reports: Other Neuro Impairments/Disorders - Bipolar Psychiatric History: Reports: Hx Panic Disorder - UNDER CONTROL - Cancer History Hx Chemotherapy: No Hx Radiation Therapy: No - Surgical History Surgery Procedure, Year, and Place: 1985 & 1986,HYSTERECTOMY 1990, HERNIA REPAIR LATE ,LAPROSCOPIC SURGERY TO REMOVE ABDOMINAL LESIONS 2011. LASIK EYE SURGERY CORRECTIVE VISION 2005 Infectious Disease History: No Infectious Disease History: Denies: Hx Clostridium Difficile, Hx Hepatitis, Hx Human Immunodeficiency Virus (HIV), Hx of Known/Suspected MRSA, Hx Shingles, Hx Tuberculosis, Hx Known/ Suspected VRE, Hx Known/Suspected VRSA, History Other Infectious Disease, Traveled Outside the [place] in Last 30 Days - Family History Known Family History: Positive: Cardiac Disease - father, Hypertension - mother and father, Other - Cervical CA (mother), HLD Family History: Cervical CA (mother), HLD - Social History Occupation: Unemployed Lives: With Family Alcohol Use: None Hx Substance Use: No Substance Use Type: Reports: None Hx Tobacco Use: No Smoking Status (MU): Former Smoker Review of Systems Negative: Fever Eyes: Other - Negative blackening vision Positive: Shortness Of Breath, Cough Positive: Other - Positive dark stool Positive: Other - Positive sharp pain under left breast All Other Systems Reviewed And Are Negative: Yes Physical Exam - Summary Physical Exam Summary: Appearance: Well appearing, no pain distress Skin: warm, dry, mild pallor Head/face: normal Eyes: EOMI, [place], conjunctiva is pale ENT: mucous membranes moist Neck: supple, non-tender Respiratory: CTA, breath sounds present Cardiovascular: RRR, pulses symmetrical Abdomen: non-tender, soft Bowel Sounds: present Musculoskeletal: normal, strength/ROM intact Neuro: normal, sensory motor intact, A&Ox3 Triage Information Reviewed: Yes Vital Signs On Initial Exam: Initial Vitals Temp Pulse Resp BP Pulse Ox 97.6 F 75 16 127/75 100 07/06/18 16:53 07/06/18 16:53 07/06/18 16:53 07/06/18 16:53 07/06/18 16:53 Vital Signs Reviewed: Yes Diagnostics - Vital Signs Vital Signs Temp Pulse Resp BP Pulse Ox 07/06/18 16:53 97.6 F 75 16 127/75 100 - Laboratory Result Diagrams: 07/06/18 17:12 07/06/18 17:12 Lab Statement: Any lab studies that have been ordered have been reviewed, and results considered in the medical decision making process. - Radiology CXR Radiology Interpretation Completed By: ED Physician Summary of Radiographic Findings: CXR reveals, per ED physician, no acute disease - EKG 1802 Cardiac Rate: Bradycardia EKG Rhythm: Sinus Rhythm - [address] Segment: Normal Ectopy: PACs Summary of EKG Findings: An EKG taken at 1802 reveals sinus bradycardia at 56 BPM with PACs, normal axis, and normal ST Course/Dx Course Of Treatment: Patient with history of anemia and possible GI bleeding presents with near syncope and left-sided discomfort under the breast. This has improved. X-rays negative. D-dimer is negative. Troponin is nonelevated and EKG shows mild bradycardia at this point. Her blood pressures are stable. Anemia is mild. She has improved with IV hydration and was walking about the ER without symptoms. She will follow up closely with her primary care physician. - Diagnoses Differential Diagnosis/HQI/PQRI: Positive: Dysrhythmia, GI Bleed, Metabolic Reaction, Pulmonary Embolism, Vasovagal Episode Provider Diagnoses: Near syncope, Mild anemia Discharge - Sign-Out/Discharge Documenting (check all that apply): Patient Departure - Discharge home - Discharge Plan Condition: Improved Disposition: HOME Patient Education Materials: Near Syncope (ED) Referrals: Nely Worthy MD [Primary Care Provider] - Additional Instructions: You have a mild anemia. Take a multivitamin with iron for this. Drink plenty of fluids. Follow-up with her primary care physician on Sunday. Return with chest pain, worse, difficulty breathing, new symptoms or other concerns as discussed. - Billing Disposition and Condition Condition: IMPROVED Disposition: Home - Attestation Statements Document Initiated by Birdie: Yes Documenting Scribe: Jessie Goodrich Provider For Whom Birdie is Documenting (Include Credential): Dr. Ray Dubose MD Scribe Attestation: Jessie Cummings scribed for Dr. Ray Dubose MD on 07/06/18 at 1824. Scribe Documentation Reviewed: Yes Provider Attestation: The documentation as recorded by the Jessie aguirre accurately reflects the service I personally performed and the decisions made by me, Dr. Ray Dubose MD
[2018-07-06 17:19] LABS: ABS Basophils 0.1 10^3/ul (0-0.2); ABS Eosinophils 0.2 10^3/ul (0-0.6); ABS Monocytes 0.6 10^3/ul (0-0.8); ABS Neutrophils 3.7 10^3/ul (1.5-7.7); ABS Nucleated RBC 0 10^3/ul; Eosinophil % 3.2 % (0-6); Hematocrit 32 % (35-47); Hemoglobin 10.7 g/dl (12.0-16.0); Lymphocyte % 30.3 % (25-47); Mean Corpuscular HGB Conc 33 g/dl (31-36); Mean Corpuscular Hemoglobin 31 pg (27-31); Mean Corpuscular Volume 92 fL (80-97); Mean Platelet Volume 8.6 fL (7.4-10.4); Nucleated Red Blood Cells % 0; Platelet Count 185 10^3/ul (150-450); Red Cell Distribution Width 15 % (10.5-15); White Blood Count 6.6 10^3/ul (3.5-10.8)
[2018-07-06 17:33] LABS: INR 1.02 (0.77-1.02)
[2018-07-06 17:40] LABS: EGFR Non-African American 61.6 (>60)
[2018-07-06 18:48] VITALS: BP 132/78
--- NOTE | 2018-07-07 07:55 | RAD ---
INDICATION: Right lower chest and abdominal pain COMPARISON: Is recent comparison chest x-rays dated July 24, 2016 TECHNIQUE: PA and lateral views of the chest were obtained. FINDINGS: The heart and mediastinum are normal in size and contour. The lungs are grossly clear. There is no evidence of large pleural effusion. Visualized bones are normal for the patient's age. There is no radiographic evidence of free air beneath the diaphragm IMPRESSION: No radiographic evidence of acute cardiopulmonary disease. R0
== END 2018-07-06 18:47 | disposition home or self-care (01) ==
LOC: ED 16:49
DX: R55 Syncope and collapse (principal); D64.9 Anemia, unspecified; Z88.0 Allergy status to penicillin; Z88.8 Allergy status to other drugs, medicaments and biological substances; Z87.891 Personal history of nicotine dependence
CPT/HCPCS: 36415; 71046; 80053; 82272; 83605; 83690; 83880; 84484; 85025; 85379; 85610; 86140; 86850; 86900; 86901; 99283